=== PATIENT | female | born 1980 ===

== ENCOUNTER → 2019-06-26 | Outpatient (CLI) | payer BC ==
[~2019-06-26] MED LIST: ALBU90OI INH; AZIT500 PO; CODGUAEL PO; HYDACE5 PO; IBUP800 PO; ONDA8 PO
== END | disposition home or self-care (01) ==
LOC: LAB SHORT 19:13 → LAB 19:13
PROVIDERS: Physician Assistant
DX: Z01.419 Encounter for gynecological examination (general) (routine) without abnormal findings (principal)
CPT/HCPCS: G0145